=== PATIENT | female | born 1950 | race Caucasian/White ===

== ENCOUNTER → 2017-05-20 | Outpatient (CLI) | payer OTHER ==
[~2017-05-20] MED LIST: ASPIRIN EC81 M1 PO; CALCIUM 1,0001 EACH PO; CELEBREX 200 M200 M1 PO; CYMBALTA60 MG PO; FISH OIL 1,0001 EAC5 PO; FISH OIL 1,001000 M2 PO; FOLIC ACID1 MG PO; LASIX 20 MG TAB20 MG PO; LISINOPRIL-HCT1 EACH PO; LYRICA 75 MG CA75 MG PO; LYRICA150 MG PO; METHOTREXATE 22.5 MG PO; MOBIC15 MG PO; MODAFINIL100 MG PO; MULTIVITAMINS PO; NORCO 5-325 TA1 EACH PO; NUVIGIL; POTASSIUM GLUC500 MG PO; POTASSIUM99 M1 PO; PREDNISONE50 MG PO; PRINZIDE 20-251 EACH PO; REMICADE 1100 MG/VIA IV; TRAMADOL 50 MG50 MG PO; UNICOMPLEX M TA1 TA1 PO; VALIUM5 MG PO; VITAMIN D 5050000 I1; VITAMIN D 5050000 I1 PO; VITAMIN D-40400 UNIT PO; VIVELLE-DOT1 EAC1 TD; VIVELLE-DOT1 EAC1 TRANSDERM
== END ==
LOC: MRI 13:53
DX: I63.8 Other cerebral infarction (principal)

== ENCOUNTER → 2019-12-27 | Outpatient (CLI) | payer OTHER ==
--- NOTE | 2019-12-29 18:43 | EEG ---
[facility] [place] [address] ELECTROENCEPHALOGRAM Name: VINNIE QUIJANO Room #: [facility].#: [id number] Admission: 12/27/19 Attend Phys: Courtney Gerber DO Discharge: Date of : 54 Report #: [id number] THIS REPORT FOR: //name// CC: JAELYN Gerber Bobby Box DATE OF SERVICE: 12/27/2019 This patient is being evaluated for altered mental status. EEG was done by placing the electrode by standard 10-20 system of electrode placement. Both referential and sequential montages were used for recording. Background activity in this patient's EEG is about 8 Hz and 30 microvolts that is a symmetrical activity, but is slow. The patient goes to sleep that is associated with bilaterally symmetrical slowing sleep spindle and vertex sharp waves. Throughout the record, no active epileptiform activity was noticed. IMPRESSION: This patient's EEG demonstrates some intermixed slowing on both sides. That is a nonspecific finding which can occur with encephalopathy, effect of psychotropic medication, dementia, etc. Clinical correlation is recommended. <ELECTRONICALLY SIGNED> By: Felipe Baird MD 12/29/19 1843 8 08 Felipe Baird MD /nt
== END ==
LOC: NEURO 10:01
PROVIDERS: ATTEND Psychiatry & Neurology Neurology
DX: R41.0 Disorientation, unspecified (principal)